=== PATIENT | female | born 1935 | race Caucasian/White ===

== ENCOUNTER 2016-09-25 06:40 | Day surgery (SDC) | payer MEDICARE, BC ==
[~2016-09-25] VITALS: Ht 153.7 cm; Wt 68.0 kg
[~2016-09-25 06:40] MED LIST: ALBU8.5H INH; AMLO2.5T PO; ASPI-557 PO; FEXO1TAB11 PO; FLUT1DIS3 ORAL INH; LEVO75TA10 PO; TRIA1TAB3 PO
--- OUTSIDE RECORDS SUMMARY | 2016-09-25 06:44 | XMS REPORT | Referral Summary ---
Author Author [facility] Organization [facility] Address Unknown Phone Unavailable Care Team Providers Care Husbandry Person Name Role Phone Shoshana Kong Primary Care Physician [phone] Encounter Date(s): 12/25/15 - 12/25/15 [facility] [address] [place] [id number]- Discharge Diagnosis: Cough Discharge Diagnosis: Systolic murmur Discharge Diagnosis: Leg cramps Discharge Diagnosis: Dyspnea on effort Discharge Diagnosis: LBBB (left bundle branch block) Discharge Disposition: 01-Home or Self Care Attending Physician: Chidi Kong MD Vital Signs Most recent to 1 oldest [Reference Range]: Temperature Tympanic 36.7 degC [36.6-38.1 degC] (12/25/15 1:56 PM) Peripheral Pulse 78 bpm Rate [60-100 bpm] (12/25/15 1:56 PM) Blood Pressure 120/70 mmHg [90-140/60-90 mmHg] (12/25/15 1:56 PM) SpO2 95 % (12/25/15 1:56 PM) Problem List Condition Effective Dates Status Health Status Informant Anemia(Confirmed) Active Arthralgia of the Active pelvic region and thigh (finding)(Confirmed) Benign essential Active hypertension (disorder)(Confirmed ) Dyspnea with Active exertion(Confirmed) Hypothyroidism Active (disorder)(Confirmed ) LBBB (left bundle Active branch block)(Confirmed) Bruit of right Active carotid artery(Confirmed) Systolic Active murmur(Confirmed) Allergies, Adverse Reactions, Alerts Substance Reaction Severity Status acetaminophen Active codeine Active HYDROcodone Active Medications aspirin 81 mg oral tablet 81 mg 1 tabs, Oral, Daily, 0 Refill(s) Start Date: 01/11/15 Status: Ordered levothyroxine 75 mcg (0.075 mg) oral tablet 75 mcg 1 tabs, Oral, Daily, # 90 tabs, 3 Refill(s), Pharmacy: [facility] [id number], 1 tabs Oral Daily Start Date: 07/24/15 Status: Ordered Norvasc 2.5 mg oral tablet See Instructions, TAKE 1 TABLET (2.5MG) BY ORAL ROUTE EVERY DAY, # 30 unknown unit, eRx: [id number], TAKE 1 TABLET (2.5MG) BY ORAL ROUTE EVERY DAY Start Date: 11/20/14 Status: Ordered triamterene-hydrochlorothiazide 37.5 mg-25 mg oral tablet See Instructions, TAKE 1 TABLET BY MOUTH ONCE EVERY DAY, # 90 tabs, eRx: [facility] [id number], TAKE 1 TABLET BY MOUTH ONCE EVERY DAY Start Date: 10/10/15 Status: Ordered Results Hematology Most recent to 1 oldest [Reference Range]: WBC [4.8-10.8 8.2 10*3/uL 10*3/uL] (12/25/15 3:18 PM) RBC [4.00-5.20] 4.88 (12/25/15 3:18 PM) Hgb [12.0-16.0 14.4 gm/dL gm/dL] (12/25/15 3:18 PM) Hct [37.0-47.0 %] 43.7 % (12/25/15 3:18 PM) MCV [82.0-99.0 fL] 89.5 fL (12/25/15 3:18 PM) MCH [27.0-32.0 pg] 29.5 pg (12/25/15 3:18 PM) MCHC [32.0-36.0 33.0 gm/dL gm/dL] (12/25/15 3:18 PM) RDW [11.5-14.5 %] 13.1 % (12/25/15 3:18 PM) Platelet [150-400 302 10*3/uL 10*3/uL] (12/25/15 3:18 PM) MPV [8.8-14.8 fL] 9.8 fL (12/25/15 3:18 PM) Immature 0.1 % Granulocytes (12/25/15 3:18 PM) [0.0-1.0 %] Neutrophils [51-75 72 % %] (12/25/15 3:18 PM) Lymphocytes [20-46 16 % %] *LOW* (12/25/15 3:18 PM) Monocytes [4-11 %] 10 % (12/25/15 3:18 PM) Eosinophils [0-4 %] 2 % (12/25/15 3:18 PM) Basophils [0-2 %] 1 % (12/25/15 3:18 PM) Neutro Absolute 5.87 10*3 [1.90-7.00 10*3] (12/25/15 3:18 PM) Lymph Absolute 1.31 10*3 [0.80-3.30 10*3] (12/25/15 3:18 PM) [place] Absolute 0.80 10*3 [0.30-1.00 10*3] (12/25/15 3:18 PM) Eos Absolute 0.15 10*3 [0.00-0.50 10*3] (12/25/15 3:18 PM) Baso Absolute 0.04 10*3 [0.00-0.20 10*3] (12/25/15 3:18 PM) Chemistry Most recent to 1 oldest [Reference Range]: Sodium Lvl [135-144 140 mEq/L mEq/L] (12/25/15 3:18 PM) Potassium Lvl 4.0 mEq/L [3.5-5.2 mEq/L] (12/25/15 3:18 PM) Chloride [99-111 101 mEq/L mEq/L] (12/25/15 3:18 PM) CO2 [22-31 mEq/L] 29 mEq/L (12/25/15 3:18 PM) AGAP [3-20] 10 (12/25/15 3:18 PM) BUN [10-20 mg/dL] 28 mg/dL *HI* (12/25/15 3:18 PM) Glucose Lvl [70-99 90 mg/dL mg/dL] (12/25/15 3:18 PM) Creatinine Lvl 1.51 mg/dL [0.57-1.11 mg/dL] *HI* (12/25/15 3:18 PM) eGFR [>60 mL/min] 33 mL/min 1 *ABN* (12/25/15 3:18 PM) Calcium Lvl 10.0 mg/dL [8.9-10.5 mg/dL] (12/25/15 3:18 PM) 1Result Comment: Multiply eGFR results by 1.21 for race. Immunizations No data available for this section Procedures Procedure Date Related Diagnosis Body Site Colonoscopy 04/08/04 Hysterectomy Knee replacement-Lt1 1Bilat TKR on same day about 2010. Social History Social History Type Response Smoking Status Former smoker; Type: Cigarettes; Tobacco use per day: Less than Pack; Number of years: 101 1quit 1993 Assessment and Plan Extracted from: Title: breathing issue Author: Chidi Kong MD Date: 12/25/15 Impression and Plan Diagnosis Systolic murmur ([id number] I38, Discharge, Medical). LBBB (left bundle branch block) (GGG31-JP I44.7, Discharge, Medical). Cough ([id number] R05, Discharge, Medical). Dyspnea on effort (FRY94-HK R06.09, Discharge, Medical). Leg cramps (XPD95-VZ R25.2, Discharge, Medical). Orders Orders (Selected) Outpatient Orders Ordered CBC w/ Differential: Metabolic Panel: eGFR: Completed Chest XR 2 Views: .
--- OUTSIDE RECORDS SUMMARY | 2016-09-25 06:44 | XMS REPORT | Continuity of Care Document ---
Author Author [facility] Organization [facility] Address Unknown Phone Unavailable Allergies Medications Problems Procedures Results Encounters ACCT No. Visit Date/Time Discharge Status Pt. Type Provider Facility Loc./Unit Complaint [id number] 09/02/2013 09:13:00 09/02/2013 23 :59:59 CLS Outpatient [id number] 06/17/2013 08:54:00 06/17/2013 23 :59:59 CLS Outpatient [id number] 06/09/2013 11:14:00 06/09/2013 23 :59:59 CLS Outpatient
--- OUTSIDE RECORDS SUMMARY | 2016-09-25 06:44 | XMS REPORT | Continuity of Care Document ---
Author Author Nickolas Palma MD [facility] Ambulatory Address [address] [place] [address] [place] [address] Phone Care Team Providers Care Nuclear Chemistry Technician Name Role Phone Nickolas Palma PP Unavailable Payers Payer name Insurance type Covered constitution party ID Authorization(s) Unknown Problems Condition Effective Dates (start - stop) Clinical Status Hypertension, Benign - *Chronic Cough - *Uncontrolled Gastroenteritis - *Acute Hip pain - *Chronic Hypertension, Benign - *Chronic Cough - *Chronic Hypertension, Benign - *Chronic Hypothyroidism - *Chronic Pain in joint involving pelvic region and thigh - *Acute HYPOTHYROIDISM NOS - ANEMIA NOS - BENIGN HYPERTENSION - ESOPHAGEAL REFLUX - Bronchitis, Acute - *Acute Bronchitis, Acute - *Acute Bronchitis, Acute - *Acute Family History Family Member Diagnosis Age At Onset Status Unknown Social History Social History Element Description Quantity Unknown Allergies, Adverse Reactions, Alerts Substance Reaction Severity Status CODEINE Unknown ACETAMINOPHEN Unknown HYDROCODONE BITARTRATE Unknown Medications Medication Instructions Dosage Effective Dates (start - stop) Status Maxzide-25mg 37.5 mg-25 mg tablet take 1 tablet by oral route every day 0 - No Longer Active Percocet 5 mg-325 mg tablet Take 1-2 tablet by mouth every 6 hours as needed. - Active Benadryl 25 mg capsule USES PRN FOR COUGH - Active Synthroid 100 mcg tablet Take 1 tablet by mouth every day. - Active Maxzide-25mg 37.5 mg-25 mg tablet take 1 tablet by oral route every day 0 - Active Norvasc 2.5 mg tablet take 1 tablet (2.5MG) by oral route every day 2.5 MG - Active Immunizations Vaccine Date Status Comments Unknown Results Test Name Date and Time Measure Units Reference Range Abnormal Flag Comments Unknown Vital Signs Date / Time: Height Weight Pulse Rate Blood Pressure Temperature /09:13:00 60.50 in 163.00 lbs 88 /min 142/80 mm[Hg] 97.6 F Procedures Procedure Date Unknown Encounters Encounter Location Date Patient Visit [facility] Patient Visit [facility] Patient Visit [facility] Patient Visit [facility] Patient Visit [facility] Patient Visit [facility] Patient Visit [facility] Patient Visit [facility] Patient Visit [facility] Patient Visit [facility] Advance Directives Directive Effective Date Unknown
--- OUTSIDE RECORDS SUMMARY | 2016-09-25 06:44 | XMS REPORT | Continuity of Care Document ---
Author Author Nickolas Palma MD [facility] Amb[facility] Address [address] [place] [address] [place] [address] Phone Care Team Providers Care Director Of Flight Operations Name Role Phone Nickolas Palma PP Unavailable Payers Payer name Insurance type Covered alliance party ID Authorization(s) Unknown Problems Condition Effective Dates (start - stop) Clinical Status Bronchitis, Acute - *Acute Gastroenteritis - *Acute Hip pain - *Chronic Bronchitis, Acute - *Acute Hypertension, Benign - *Chronic Hypothyroidism - *Chronic Pain in joint involving pelvic region and thigh - *Acute HYPOTHYROIDISM NOS - ANEMIA NOS - BENIGN HYPERTENSION - ESOPHAGEAL REFLUX - Bronchitis, Acute - *Acute Family History Family Member Diagnosis Age At Onset Status Unknown Social History Social History Element Description Quantity Unknown Allergies, Adverse Reactions, Alerts Substance Reaction Severity Status CODEINE Unknown ACETAMINOPHEN Unknown HYDROCODONE BITARTRATE Unknown Medications Medication Instructions Dosage Effective Dates (start - stop) Status Zithromax Z-Michael 250 mg tablet take 2 tablet (500MG) by oral route every day for 1 day then 1 tablet (250 mg) by oral route once daily for 4 days 500 MG - No Longer Active Percocet 5 mg-325 mg tablet Take 1-2 tablet by mouth every 6 hours as needed. - Active Benadryl 25 mg capsule USES PRN FOR COUGH - Active potassium chloride ER 10 mEq tablet,extended release take 1 Tablet (10MEQ) by oral route every day 10 MEQ - Active Synthroid 100 mcg tablet Take 1 tablet by mouth every day. - Active diltiazem ER 240 mg capsule,extended release Take 1 capsule by mouth every day. - Active hydrochlorothiazide 25 mg tablet Take 1 tablet by mouth every day. 2012 - Active prednisone 10 mg tablet Take 6 tabs on the first day and decrease by one tab daily until finished. - Active Immunizations Vaccine Date Status Comments Unknown Results Test Name Date and Time Measure Units Reference Range Abnormal Flag Comments Unknown Vital Signs Date / Time: Height Weight Pulse Rate Blood Pressure Temperature /11:14:00 60.50 in 151.00 lbs 91 /min 118/66 mm[Hg] 98.8 F Procedures Procedure Date Unknown Encounters Encounter Location Date Patient Visit [facility] Patient [facility] Patient Visit [facility] Patient Visit [facility] Patient Visit [facility] Patient Visit [facility] Patient Visit [facility] Patient Visit [facility] Patient Visit [facility] Patient Visit [facility] Advance Directives Directive Effective Date Unknown
--- OUTSIDE RECORDS SUMMARY | 2016-09-25 06:44 | XMS REPORT | Referral Summary ---
Author Author [facility] Organization [facility] Address Unknown Phone Unavailable Care Team Providers Care Reclamation Engineer Name Role Phone Shoshana Kong Primary Care Physician [phone] Encounter Date(s): 07/23/15 - 07/23/15 [facility] [address] [place] [id number] Discharge Diagnosis: Benign essential hypertension Discharge Diagnosis: Anemia Discharge Diagnosis: Dyspnea on effort Discharge Diagnosis: Fatigue Discharge Diagnosis: CKD (chronic kidney disease), stage III Discharge Diagnosis: Hypothyroidism Discharge Disposition: 01-Home or Self Care Attending Physician: Chidi Kong MD Admitting Physician: Chidi Kong MD Vital Signs Most recent to 1 oldest [Reference Range]: Temperature Tympanic 36.7 degC [36.6-38.1 degC] (07/23/15 8:18 AM) Peripheral Pulse 78 bpm Rate [60-100 bpm] (07/23/15 8:18 AM) Blood Pressure 127/70 mmHg [90-140/60-90 mmHg] (07/23/15 8:18 AM) Problem List Condition Effective Dates Status Health [...] levothyroxine 75 mcg (0.075 mg) oral tablet See Instructions, 1 TABS ORAL DAILY,INSTR:REPEAT LABS IN 6 WEEKS, # 30 tabs, 0 Refill(s), [id number], 1 TABS ORAL DAILY,INSTR:REPEAT LABS IN 6 WEEKS Start Date: 06/28/15 Status: Ordered Maxzide-25 oral tablet See Instructions, TAKE 1 TABLET BY ORAL ROUTE EVERY DAY, # 90 unknown unit, eRx : [facility] [id number], TAKE 1 TABLET BY ORAL ROUTE EVERY DAY Start Date: 07/11/15 Status: Ordered Norvasc 2.5 mg oral tablet See Instructions, TAKE 1 TABLET (2.5MG) BY ORAL ROUTE EVERY DAY, # 30 unknown unit, eRx: [facility] [id number], TAKE 1 TABLET (2.5MG) BY ORAL ROUTE EVERY DAY Start Date: 11/20/14 Status: Ordered Results Hematology Most recent to 1 oldest [Reference Range]: WBC [4.8-10.8 5.9 10*3/uL 10*3/uL] (07/23/15 8:23 AM) RBC [4.00-5.20] 5.03 (07/23/15 8:23 AM) Hgb [12.0-16.0 14.4 gm/dL gm/dL] (07/23/15 8:23 AM) Hct [37.0-47.0 %] 45.2 % (07/23/15 8:23 AM) MCV [82.0-99.0 fL] 89.9 fL (07/23/15 8:23 AM) MCH [27.0-32.0 pg] 28.6 pg (07/23/15 8:23 AM) MCHC [32.0-36.0 31.9 gm/dL gm/dL] *LOW* (07/23/15 8:23 AM) RDW [11.5-14.5 %] 13.7 % (07/23/15 8:23 AM) Platelet [150-400 290 10*3/uL 10*3/uL] (07/23/15 8:23 AM) MPV [8.8-14.8 fL] 9.7 fL (07/23/15 8:23 AM) Immature 0.2 % Granulocytes (07/23/15 8:23 AM) [0.0-1.0 %] Neutrophils [51-75 67 % %] (07/23/1523 AM) Lymphocytes [20-46 20 % %] (07/23/15 AM) Monocytes [4-11 %] 10 % (07/23/15 AM) Eosinophils [0-4 %] 3 % (07/23/15 AM) Basophils [0-2 %] 1 % (07/23/15 AM) Neutro Absolute 3.99 10*3 [1.90-7.00 10*3] (07/23/1523 AM) Lymph Absolute 1.16 10*3 [0.80-3.30 10*3] (07/23/1523 AM) [place] Absolute 0.58 10*3 [0.30-1.00 10*3] (07/23/1523 AM) Eos Absolute 0.16 10*3 [0.00-0.50 10*3] (07/23/15 AM) Baso Absolute 0.03 10*3 [0.00-0.20 10*3] (07/23/1523 AM) Chemistry Most recent to 1 oldest [Reference Range]: Sodium Lvl [135-144 141 mEq/L mEq/L] (07/23/15 AM) Potassium Lvl 3.9 mEq/L [3.5-5.2 mEq/L] (07/23/15 AM) Chloride [99-111 102 mEq/L mEq/L] (07/23/15 AM) CO2 [22-31 mEq/L] 31 mEq/L (07/23/1523 AM) AGAP [3-20] 8 (07/23/15 823 AM) BUN [10-20 mg/dL] 25 mg/dL *HI* (07/23/15 8:23 AM) Glucose Lvl [70-99 85 mg/dL mg/dL] (07/23/15 AM) Creatinine Lvl 1.23 mg/dL [0.57-1.11 mg/dL] *HI* (07/23/15 823 AM) eGFR [>60 mL/min] 42 mL/min 1 *ABN* (2/15/16 8:23 AM) Calcium Lvl 9.6 mg/dL [8.9-10.5 mg/dL] (07/23/15 8:23 AM) TSH with Reflex Free 0.73 T4 [0.35-4.94] (07/23/15 8:23 AM) 1Result Comment: Multiply eGFR results by 1.21 [...] 1993 Assessment and Plan Extracted from: Title: Get established Author: Chidi Kong MD Date: 07/23/15 Assessment/Plan Anemia Ordered: CBC w/ Differential Benign essential hypertension CKD (chronic kidney disease), stage III Ordered: Basic Metabolic Panel Dyspnea on effort Fatigue Ordered: CBC w/ Differential Hypothyroidism Ordered: TSH with Reflex Free T4 Due to fatigue and as monitoring of chronic kidney disease and hypothyroidism and history of anemia, we will check some labs today. These will include CBC, BMP, TSH. If her TSH is okay, plan to refill her thyroid medicine for one year with 90 days at a time, to be sent to [facility] pharmacy. As we concluded the visit, I had not had time to review her past history regarding pulmonology workup. I have done that since then and that is incorporated above. I think she should have some additional evaluation including pulmonary function tests. Certainly she seems to be responding symptomatically to Advair and would be ideal to continue on it. Cost of the medicine is that concern to her. Otherwise things seem to be stable and we will continue current medications. Follow-up 6 months or sooner if needed.
--- OUTSIDE RECORDS SUMMARY | 2016-09-25 06:44 | XMS REPORT | Continuity of Care Document ---
Author Author Nickolas Palma MD [facility] Ambulatory Address [address] [place] [address] [place] [address] Phone Care Team Providers Care Crop Grain Or Livestock Farmer Name Role Phone Nickolas Palma PP Unavailable Payers Payer name Insurance type Covered constitution party ID Authorization(s) Unknown Problems Condition Effective Dates (start - stop) Clinical Status Bronchitis, Acute - *Acute Gastroenteritis - *Acute Hip pain - *Chronic Hypertension, Benign - *Chronic Hypothyroidism - *Chronic Pain in joint involving pelvic region and thigh - *Acute Bronchitis, Acute - *Acute Bronchitis, Acute - *Acute ESOPHAGEAL REFLUX - BENIGN HYPERTENSION - ANEMIA NOS - HYPOTHYROIDISM NOS - Family History Family Member Diagnosis Age At Onset Status Unknown Social History Social History Element Description Quantity Unknown Allergies, Adverse Reactions, Alerts Substance Reaction Severity Status CODEINE Unknown ACETAMINOPHEN Unknown HYDROCODONE BITARTRATE Unknown Medications Medication Instructions Dosage Effective Dates (start - stop) Status prednisone 10 mg tablet Take 6 tabs on the first day and decrease by one tab daily until finished. - Active Percocet 5 mg-325 mg tablet Take 1-2 tablet by mouth every 6 hours as needed. - Active Benadryl 25 mg capsule USES PRN FOR COUGH - Active potassium chloride ER 10 mEq tablet,extended release take 1 Tablet (10MEQ) by oral route every day 10 MEQ - Active hydrochlorothiazide 25 mg tablet Take 1 tablet by mouth every day. 2012 - Active Synthroid 100 mcg tablet Take 1 tablet by mouth every day. - Active diltiazem 120 mg tablet take 1 tablet (120MG) by oral route 2 times every day 120 MG - Active Immunizations Vaccine Date Status Comments Unknown Results Test Name Date and Time Measure Units Reference Range Abnormal Flag Comments Unknown Vital Signs Date / Time: Height Weight Pulse Rate Blood Pressure Temperature /08:56:00 60.50 in 154.00 lbs 82 /min 124/80 mm[Hg] 97.6 F Procedures Procedure Date Unknown Encounters Encounter Location Date Patient Visit [facility] Patient Visit [facility] Patient Visit [facility] Patient Visit [facility] Patient Visit [facility] Patient Visit [facility] Patient Visit [facility] Patient Visit [facility] Patient Visit [facility] Patient Visit [facility] Patient Visit [facility] Advance Directives Directive Effective Date Unknown
--- OUTSIDE RECORDS SUMMARY | 2016-09-25 06:44 | XMS REPORT | Referral Summary ---
Author Author [facility] Organization [facility] Address Unknown Phone Unavailable Care Team Providers Care Chargeback Specialist Name Role Phone Shoshana Kong Primary Care Physician [phone] Encounter VC Date(s): 04/22/16 - 04/22/16 [facility] [address] [place] [id number] Discharge Disposition: 01-Home or Self Care Attending Physician: Chidi Kong MD Admitting Physician: Chidi Kong MD Vital Signs No data available for this section Problem List Condition Effective Dates Status Health Status Informant Anemia(Confirmed) Active Arthralgia of the Active pelvic region and thigh (finding)(Confirmed) Benign essential Active hypertension (disorder)(Confirmed ) CKD (chronic kidney Active disease), stage III(Confirmed) Dyspnea with Active exertion(Confirmed) Hypothyroidism Active (disorder)(Confirmed ) LBBB (left bundle Active branch block)(Confirmed) Mild persistent Active asthma(Confirmed) Bruit of right Active carotid artery(Confirmed) Systolic Active murmur(Confirmed) Allergies, Adverse Reactions, Alerts Substance Reaction Severity Status acetaminophen Active codeine Active HYDROcodone Active Medications Advair Diskus 250 mcg-50 mcg inhalation powder See Instructions, INHALE 1 DOSE INTO LUNGS TWICE DAILY, # 60 g, 1 Refill(s), eRx : [facility] [id number], INHALE 1 DOSE INTO LUNGS TWICE DAILY Start Date: 03/28/16 Status: Ordered albuterol CFC free 90 mcg/inh inhalation aerosol 2 puffs, Inhalation, q4hr, as needed for wheezing, # 8.5 g, 0 Refill(s), Pharmacy: [facility] [id number] Start Date: 12/28/15 Status: Ordered aspirin 81 mg oral tablet 81 mg 1 tabs, Oral, Daily, 0 Refill(s) Start Date: 8/6/15 Status: Ordered levothyroxine 75 mcg (0.075 mg) oral tablet 75 mcg 1 tabs, Oral, Daily, # 90 tabs, 3 Refill(s), Pharmacy: [facility] [id number], 1 tabs Oral Daily Start Date: 07/24/15 Status: Ordered Norvasc 2.5 mg oral tablet See Instructions, TAKE 1 TABLET (2.5MG) BY ORAL ROUTE EVERY DAY, # 90 Each, 1 Refill(s), Pharmacy: [facility][note 2], TAKE 1 TABLET (2.5MG) BY ORAL ROUTE EVERY DAY Start Date: 02/08/16 Status: Ordered Spacer Spacer, See Instructions, Spacer for use with Metered dose inhaler, # 1 Each, 0 Refill(s), Pharmacy: [facility][note 2], Spacer for use with Metered dose inhaler Start Date: 12/28/15 Status: Ordered triamterene-hydrochlorothiazide 37.5 mg-25 mg oral tablet See Instructions, TAKE 1 TABLET BY MOUTH ONCE EVERY DAY, # 90 tabs, 1 Refill(s) , eRx: [facility][note 2], TAKE 1 TABLET BY MOUTH ONCE EVERY DAY Start Date: 04/07/16 Status: Ordered Results No data available for this section Immunizations Vaccine Date Refusal Reason influenza virus vaccine, inactivated 04/22/16 pneumococcal 13-valent conjugate vaccine 01/25/16 Procedures Procedure Date Related Diagnosis Body Site Colonoscopy 04/08/04 Hysterectomy Knee replacement-Lt1 1Bilat TKR on same day about 2010. Social History Social History Type Response Smoking Status Former smoker; Type: Cigarettes; Tobacco use per day: Less than Pack; Number of years: 101 1quit 1993 Assessment and Plan No data available for this section
--- OUTSIDE RECORDS SUMMARY | 2016-09-25 06:44 | XMS REPORT | Referral Summary ---
Author Author [facility] Organization [facility] Address Unknown Phone Unavailable Care Team Providers Care Knocker Off Name Role Phone Shoshana Kong Primary Care Physician [phone] Encounter [facility] [id number] Date(s): 01/11/15 - 01/11/15 [facility] [address] [place], [place] [address] Discharge Diagnosis: Dizzy spells Discharge Diagnosis: Mild aortic stenosis Discharge Diagnosis: Essential hypertension Discharge Diagnosis: LBBB (left bundle branch block) Discharge Disposition: 01-Home or Self Care Attending Physician: Dustin Andre MD Admitting Physician: Dustin Andre MD Vital Signs Most recent to 1 oldest [Reference Range]: Peripheral Pulse 76 bpm Rate [60-100 bpm] (01/11/15 3:51 PM) Blood Pressure 112/72 mmHg [90-140/60-90 mmHg] (01/11/15 3:51 PM) Problem List Condition Effective Dates Status [...] Daily, # 90 tabs, 3 Refill(s), Pharmacy: [facility] [id number], 1 tabs Oral Daily Start Date: 07/24/15 Status: Ordered Maxzide-25 oral tablet See Instructions, TAKE 1 TABLET BY ORAL ROUTE EVERY DAY, # 90 unknown unit, eRx : [facility] [id number], TAKE 1 TABLET BY ORAL ROUTE EVERY DAY Start Date: 07/11/15 Status: Ordered Norvasc 2.5 mg oral tablet See Instructions, TAKE 1 TABLET (2.5MG) BY ORAL ROUTE EVERY DAY, # 30 unknown unit, eRx: [facility] [id number], TAKE 1 TABLET (2.5MG) BY ORAL ROUTE EVERY DAY Start Date: 11/20/14 Status: Ordered Results No data available for this section Immunizations No data available for this section Procedures Procedure Date Related Diagnosis Body Site Colonoscopy 04/08/04 Hysterectomy Knee replacement-Lt1 1Bilat TKR on same day about 2010. Social History Social History Type Response Smoking Status Former smoker; Type: Cigarettes; Tobacco use per day: Less than Pack; Number of years: 101 1quit 1993 Assessment and Plan Referrals to Other Providers Referred by: Dustin Andre MD
--- OUTSIDE RECORDS SUMMARY | 2016-09-25 06:44 | XMS REPORT | Referral Summary ---
Author Author [facility] Organization [facility] Address Unknown Phone Unavailable Care Team Providers Care Land Classifier Name Role Phone Ulisses Palma Primary Care Physician [phone] Encounter VC Date(s): 03/26/15 - 03/26/15 [facility] [address] [place] [id number] Discharge Diagnosis: Benign essential hypertension Discharge Diagnosis: Hypothyroidism Discharge Diagnosis: Cough Discharge Disposition: 01-Home or Self Care Attending Physician: Nickolas Palma MD Admitting Physician: Nickolas Palma MD Vital Signs Most recent to 1 oldest [Reference Range]: Temperature Tympanic 36.4 degC [36.6-38.1 degC] *LOW* (03/26/15 8:29 AM) Peripheral Pulse 80 bpm Rate [60-100 bpm] (03/26/15 8:29 AM) Respiratory Rate 24 br/min [14-20 br/min] *HI* (03/26/15 8:29 AM) Blood Pressure 126/76 mmHg [90-140/60-90 mmHg] (03/26/15 8:29 AM) Problem List Condition Effective Dates Status [...] 0 Refill(s) Start Date: 01/11/15 Status: Ordered Benadryl 25 mg oral capsule caps, Oral, TID, uses PRN for cough, 0 Refill(s) Start Date: 09/15/14 Status: Ordered levothyroxine 88 mcg (0.088 mg) oral tablet 88 mcg 1 tabs, Oral, Daily, Recheck lab TSH in 6 weeks, # 90 tabs, 0 Refill(s), Pharmacy: [facility] [id number], 1 tabs Oral Daily,Instr:Recheck lab TSH in 6 weeks Start Date: 01/12/15 Status: Ordered Maxzide-25 oral tablet See Instructions, TAKE 1 TABLET BY ORAL ROUTE EVERY DAY, # 90 unknown unit, eRx : [facility] [id number], TAKE 1 TABLET BY ORAL ROUTE EVERY DAY Start Date: 01/08/15 Status: Ordered Norvasc 2.5 mg oral tablet See Instructions, TAKE 1 TABLET (2.5MG) BY ORAL ROUTE EVERY DAY, # 30 unknown unit, eRx: [facility] [id number], TAKE 1 TABLET (2.5MG) BY ORAL ROUTE EVERY DAY Start Date: 11/20/14 Status: Ordered omeprazole 20 mg, Oral, Daily, 0 Refill(s) Start Date: 03/26/15 Status: Ordered Percocet 5/325 oral tablet See Instructions, take 1 - 2 tablet by mouth every 6 hours as needed, 0 Refill(s ) Start Date: 09/15/14 Status: Ordered Results Chemistry Most recent to 1 oldest [Reference Range]: T4 Free [0.7-1.5 1.6 ng/dL ng/dL] *HI* (03/26/15 9:38 AM) TSH with Reflex Free 0.08 T4 [0.35-4.94] *LOW* (03/26/15 9:38 AM) Immunizations No data available for this section Procedures Procedure Date Related Diagnosis Body Site Colonoscopy 04/08/04 Hysterectomy Knee replacement-Lt Social History Social History Type Response Smoking Status Former smoker; Type: Cigarettes; Tobacco use per day: Less than Pack; Number of years: 101 1quit 1993 Assessment and Plan Extracted from: Title: Office Visit Note Author: Nickolas Palma MD Date: 03/26/15 Assessment/Plan Benign essential hypertension Cough Hypothyroidism Plan: Regarding your blood pressure and thyroid I think they are stable. I am checking a TSH today. I would like to do a bone density test. I gave you a sample of Advair 250/50 to use 1 inhalation twice a day. If you're cough is not better in a week to 2 weeks let me know. I also want to start loratadine 10 mg a day. We discussed the need to find a new primary care physician. He need a med check up in 6 months. Ordered: TSH with Reflex Free T4 Orders: BD Bone Density DEXA Axial Skeleton
--- OUTSIDE RECORDS SUMMARY | 2016-09-25 06:44 | XMS REPORT | Referral Summary ---
Author Author [facility] Organization [facility] Address Unknown Phone Unavailable Care Team Providers Care Slipcover Cutter Name Role Phone Shoshana Kong Primary Care Physician [phone] Encounter Date(s): 01/11/15 - 01/11/15 [facility] [address] [place], [place] [address] Discharge Disposition: 01-Home or Self Care Attending Physician: Dustin Andre MD Admitting Physician: Dustin Andre MD Vital Signs No data available for [...] Daily, # 90 tabs, 3 Refill(s), Pharmacy: [facility] [id number], 1 tabs Oral Daily Start Date: 07/24/15 Status: Ordered Maxzide-25 oral tablet See Instructions, TAKE 1 TABLET BY ORAL ROUTE EVERY DAY, # 90 unknown unit, eRx : [facility] [id number], TAKE 1 TABLET BY ORAL ROUTE EVERY DAY Start Date: 07/11/15 Status: Ordered Norvasc 2.5 mg oral tablet See Instructions, TAKE 1 TABLET (2.5MG) BY ORAL ROUTE EVERY DAY, # 30 unknown unit, eRx: [facility] [id number], TAKE 1 TABLET (2.5MG) BY ORAL ROUTE [...]
--- OUTSIDE RECORDS SUMMARY | 2016-09-25 06:44 | XMS REPORT | Referral Summary ---
Author Author [facility] Organization [facility] Address Unknown Phone Unavailable Care Team Providers Care Conflict Resolution Professional Name Role Phone Shoshana Kong Primary Care Physician [phone] Encounter Date(s): 01/25/16 - 01/25/16 [facility] [address] [place] [address] Discharge Diagnosis: Mild persistent asthma Discharge Diagnosis: Hypothyroidism Discharge Diagnosis: Benign essential hypertension Discharge Diagnosis: Colon cancer screening Discharge Diagnosis: CKD (chronic kidney disease), stage III Discharge Disposition: 01-Home or Self Care Attending Physician: Chidi Kong MD Admitting Physician: Chidi Kong MD Vital Signs Most recent to 1 oldest [Reference Range]: Temperature Tympanic 36.7 degC [36.6-38.1 degC] (01/25/16 8:08 AM) Peripheral Pulse 80 bpm Rate [60-100 bpm] (01/25/16 8:08 AM) Blood Pressure 117/69 mmHg [90-140/60-90 mmHg] (01/25/16 8:08 AM) Problem List Condition Effective Dates Status [...] Advair Diskus 250 mcg-50 mcg inhalation powder 1 puffs, Inhalation, BID, # 60 Each, 1 Refill(s), Pharmacy: [facility] [id number] Start Date: 01/11/16 Status: Ordered albuterol CFC free 90 mcg/inh inhalation aerosol 2 puffs, Inhalation, q4hr, as needed for wheezing, # 8.5 g, 0 Refill(s), Pharmacy: [facility] [address] Start Date: 12/28/15 Status: Ordered aspirin 81 mg oral tablet 81 mg 1 tabs, Oral, Daily, 0 Refill(s) Start Date: 01/11/15 Status: Ordered levothyroxine 75 mcg (0.075 mg) oral tablet 75 mcg 1 tabs, Oral, Daily, # 90 tabs, 3 Refill(s), Pharmacy: [facility] [id number], 1 tabs Oral Daily Start Date: 07/24/15 Status: Ordered Norvasc 2.5 mg oral tablet See Instructions, TAKE 1 TABLET (2.5MG) BY ORAL ROUTE EVERY DAY, # 30 unknown unit, eRx: [facility] [id number], TAKE 1 TABLET (2.5MG) BY ORAL ROUTE EVERY DAY Start Date: 11/20/14 Status: Ordered Spacer Spacer, See Instructions, Spacer for use with Metered dose inhaler, # 1 Each, 0 Refill(s), Pharmacy: [facility] [id number], Spacer for use with Metered dose inhaler Start Date: 12/28/15 Status: Ordered triamterene-hydrochlorothiazide 37.5 mg-25 mg oral tablet See Instructions, TAKE 1 TABLET BY MOUTH ONCE EVERY DAY, # 90 tabs, eRx: [facility] [id number], TAKE 1 TABLET BY MOUTH ONCE EVERY DAY Start Date: 01/07/16 Status: Ordered Results No data available for this section Immunizations Vaccine Date Refusal Reason pneumococcal 13-valent conjugate vaccine 01/25/16 Procedures Procedure Date Related Diagnosis Body Site Colonoscopy 04/08/04 Hysterectomy Knee replacement-Lt1 1Bilat TKR on same day about 2010. Social History Social History Type Response Smoking Status Former smoker; Type: Cigarettes; Tobacco use per day: Less than Pack; Number of years: 101 1quit 1993 Assessment and Plan Extracted from: Title: [facility] Author: Chidi Kong MD Date: 01/25/16 Impression and Plan Diagnosis Mild persistent asthma (JCA26-XB J45.30, Discharge, Medical). Hypothyroidism (YCX86-YE E03.9, Discharge, Medical). Benign essential hypertension (YHB15-BN I10, Discharge, Medical). Colon cancer screening (DUN21-VL Z12.11, Discharge, Medical). CKD (chronic kidney disease), stage III (OJD34-IQ N18.3, Discharge, Medical). Orders Orders (Selected) Outpatient Orders Future (On Hold) BMP: Occult Blood X 3, Stool: .
--- OUTSIDE RECORDS SUMMARY | 2016-09-25 06:44 | XMS REPORT | Referral Summary ---
Author Author [facility] Organization [facility] Address Unknown Phone Unavailable Care Team Providers Care Shoe Parts Molder Name Role Phone Shoshana Kong Primary Care Physician [phone] Encounter VC Date(s): 01/11/16 - 01/11/16 [facility] [address] [place] [address] Discharge Diagnosis: Mild persistent asthma Discharge Diagnosis: Pain in both feet Discharge Disposition: 01-Home or Self Care Attending Physician: Chidi Kong MD Admitting Physician: Chidi Kong MD Vital Signs Most recent to 1 oldest [Reference Range]: Temperature Tympanic 37.0 degC [36.6-38.1 degC] (01/11/16 12:49 PM) Peripheral Pulse 83 bpm Rate [60-100 bpm] (01/11/16 12:49 PM) Blood Pressure 112/64 mmHg [90-140/60-90 mmHg] (01/11/16 12:49 PM) SpO2 97 % (01/11/16 12:49 PM) Problem List Condition Effective Dates Status [...] BID, # 60 Each, 1 Refill(s), Pharmacy: [facility] [id number] Start Date: 01/11/16 Status: Ordered albuterol CFC free 90 mcg/inh inhalation aerosol 2 puffs, Inhalation, q4hr, as needed for wheezing, # 8.5 g, 0 Refill(s), Pharmacy: [facility] [id number] Start Date: 12/28/15 Status: Ordered aspirin 81 mg oral tablet 81 mg 1 tabs, Oral, Daily, 0 Refill(s) Start Date: 01/11/15 Status: Ordered levothyroxine 75 mcg (0.075 mg) oral tablet 75 mcg 1 tabs, Oral, Daily, # 90 tabs, 3 Refill(s), Pharmacy: [facility], 1 tabs Oral Daily Start Date: 07/24/15 Status: Ordered Norvasc 2.5 mg oral tablet See Instructions, TAKE 1 TABLET (2.5MG) BY ORAL ROUTE EVERY DAY, # 30 unknown unit, eRx: [facility] [id number], TAKE 1 TABLET (2.5MG) BY ORAL ROUTE EVERY DAY Start Date: 11/20/14 Status: Ordered Spacer Spacer, See Instructions, Spacer for use with Metered dose inhaler, # 1 Each, 0 Refill(s), Pharmacy: [facility], Spacer for use with Metered dose inhaler Start Date: 12/28/15 Status: Ordered triamterene-hydrochlorothiazide 37.5 mg-25 mg oral tablet See Instructions, TAKE 1 TABLET BY MOUTH ONCE EVERY DAY, # 90 tabs, eRx: [facility] [id number], TAKE 1 TABLET BY MOUTH ONCE EVERY [...] 1992 Assessment and Plan Extracted from: Title: Follow Up Author: Chidi Kong MD Date: 01/11/16 Impression and Plan Diagnosis Mild persistent asthma (AZG40-JL J45.30, Discharge, Medical). Pain in both feet (CFT15-GZ M79.671, Discharge, Medical). Orders Orders (Selected) Prescriptions Prescribed Advair Diskus 250 mcg-50 mcg inhalation powder: 1 puffs, Inhalation, BID, 60 Each, 1 Refill(s).
--- OUTSIDE RECORDS SUMMARY | 2016-09-25 06:44 | XMS REPORT | Referral Summary ---
Author Author [facility] Organization [facility] Address Unknown Phone Unavailable Care Team Providers Care Retail Consultant Name Role Phone Shoshana Kong Primary Care Physician [phone] Encounter VC Date(s): 01/11/15 - 01/11/15 [facility] [address] [place] [address] Discharge Disposition: 01-Home or Self Care Attending Physician: Nickolas Palma MD Admitting Physician: Nickolas Palma MD Vital Signs Most recent to 1 oldest [Reference Range]: Temperature Tympanic 36.4 degC [36.6-38.1 degC] *LOW* (01/11/15 9:23 AM) Peripheral Pulse 76 bpm Rate [60-100 bpm] (01/11/15 9:23 AM) Respiratory Rate 24 br/min [14-20 br/min] *HI* (01/11/15 9:23 AM) Blood Pressure 136/74 mmHg [90-140/60-90 mmHg] (01/11/15 9:23 AM) Problem List Condition Effective Dates Status [...] WEEKS, # 30 tabs, 0 Refill(s), Pharmacy: [facility] [id number], 1 TABS ORAL DAILY,INSTR:REPEAT LABS IN 6 WEEKS Start Date: 06/28/15 Status: Ordered Maxzide-25 oral tablet See Instructions, TAKE 1 TABLET BY ORAL ROUTE EVERY DAY, # 90 unknown unit, eRx : [facility] [id number], TAKE 1 TABLET BY ORAL ROUTE EVERY DAY Start Date: 07/11/15 Status: Ordered Norvasc 2.5 mg oral tablet See Instructions, TAKE 1 TABLET (2.5MG) BY ORAL ROUTE EVERY DAY, # 30 unknown unit, eRx: [facility] [id number], TAKE 1 TABLET (2.5MG) BY ORAL ROUTE [...] Visit Note Author: Nickolas Palma MD Date: 01/11/15 Assessment/Plan Bruit of right carotid artery Ordered: Request for Cardiovascular Echo Dizziness of unknown cause Ordered: CBC w/ Differential TSH with Reflex Free T4 Systolic murmur Plan: I have called and discussed your findings and symptoms to Dr. Andre. He has agreed to work you into his schedule. I would like to do a Holter monitor but our ability to order them this week is compromised. Possibly Dr. Andre could order that. I have ordered an echo and a carotid sonogram. Your EKG here today showed left bundle branch block but no concerning findings from my standpoint. I have ordered some lab tests a CBC, CMP and a TSH. If from a cardiology standpoint there is no concerns about her dizziness then follow-up with me for reevaluation. Ordered: Comprehensive Metabolic Panel Echo,2D W/Doppl [id number] EKG with Interpretation [id number] Request for Cardiovascular Echo
--- OUTSIDE RECORDS SUMMARY | 2016-09-25 06:45 | XMS REPORT | Referral Summary ---
Author Author [facility] Organization [facility] Address Unknown Phone Unavailable Care Team Providers Care Elementary School Music Teacher Name Role Phone Shoshana Kong Primary Care Physician [phone] Encounter Date(s): 01/17/15 - 01/17/15 [facility] [address] [place] [address] [place] [address] Discharge Diagnosis: LBBB (left bundle branch block) Discharge Diagnosis: Edema Discharge Diagnosis: Secondary hyperthyroidism Discharge Diagnosis: Dizziness Discharge Disposition: -Home or Self Care Attending Physician: Dustin Andre MD Admitting Physician: Dustin Andre MD Referring Physician: Nickolas Palma MD Vital Signs Most recent to 1 oldest [Reference Range]: Peripheral Pulse 80 bpm Rate [60-100 bpm] (01/17/15 2:40 PM) Blood Pressure 146/84 mmHg [90-140/60-90 mmHg] *HI* (01/17/15 2:40 PM) Problem List Condition Effective Dates Status [...] Daily, # 90 tabs, 3 Refill(s), Pharmacy: [facility] [address], 1 tabs Oral Daily Start Date: 07/24/15 Status: Ordered Maxzide-25 oral tablet See Instructions, TAKE 1 TABLET BY ORAL ROUTE EVERY DAY, # 90 unknown unit, eRx : [facility] [id number], TAKE 1 TABLET BY ORAL ROUTE EVERY DAY Start Date: 07/11/15 Status: Ordered Norvasc 2.5 mg oral tablet See Instructions, TAKE 1 TABLET (2.5MG) BY ORAL ROUTE EVERY DAY, # 30 unknown unit, eRx: [facility] [address], TAKE 1 TABLET (2.5MG) BY ORAL ROUTE [...] Extracted from: Title: Office Visit Note Author: Dustin Andre MD Date: 01/17/15 Assessment/Plan 1.Dizziness 2.Secondary hyperthyroidism 3.LBBB (left bundle branch block) 4.Edema Discussion I suspect that the thyroid may be the abbott aspect of her symptom complex and for that reason, I elected not to make any changes in her medication program at this point. I advised her to have a follow-up visit in 6 -12 months but to call any time if she feels that her symptoms are worsening.
--- OUTSIDE RECORDS SUMMARY | 2016-09-25 06:45 | XMS REPORT | Referral Summary ---
Author Author [facility] Organization [facility] Address Unknown Phone Unavailable Care Team Providers Care Stoneworking Belt Sander Name Role Phone Shoshana Kong Primary Care Physician [phone] Encounter Date(s): 03/26/15 - 03/26/15 [facility] [address] [place] [address] Discharge Diagnosis: Benign essential hypertension [...] Daily, # 90 tabs, 3 Refill(s), Pharmacy: [facility] [address], 1 tabs Oral Daily Start Date: 07/24/15 Status: Ordered Maxzide-25 oral tablet See Instructions, TAKE 1 TABLET BY ORAL ROUTE EVERY DAY, # 90 unknown unit, eRx : [facility] [id number], TAKE 1 TABLET BY ORAL ROUTE EVERY DAY Start Date: 07/11/15 Status: Ordered Norvasc 2.5 mg oral tablet See Instructions, TAKE 1 TABLET (2.5MG) BY ORAL ROUTE EVERY DAY, # 30 unknown unit, eRx: [facility] [id number], TAKE 1 TABLET (2.5MG) BY ORAL ROUTE EVERY DAY Start Date: 11/20/14 Status: Ordered Results Chemistry Most recent to [...]
[2016-09-25] MEDS ORDERED: LR 1,000 ML IV SCH (07:00)
[2016-09-25] MEDS ORDERED: LIDOCAINE 1% (10mg/ml) 2ml SDV INJ ONE (07:00)
[2016-09-25 07:01] VITALS: BP 149/78; PULSE 71; RESP 22; TEMP 98; O2SAT 93
[2016-09-25 07:02] VITALS: Ht 153.7 cm; Wt 68.0 kg
[2016-09-25] MEDS ORDERED: LIDOCAINE 2% (20mg/ml) 5ml PF SDV ONE (08:32)
[2016-09-25] MEDS ORDERED: PROPOFOL 500mg 50 ML IV ONE (08:32)
--- NOTE | 2016-09-25 08:44 | ANESPREOP ---
Anesthesia Record Date and Time DATE: 09/25/16 TIME: 0730 Pre-Op Diagnosis screening Proposed Surgical Procedure COLONOSCOPY NPO since: mn Allergies: Coded Allergies: acetaminophen (Unverified Allergy, Unknown, 09/25/16) codeine (Unverified Allergy, Unknown, 09/25/16) hydrocodone (Unverified Allergy, Unknown, 09/25/16) Ht/Wt/BMI Height: 5 ' 0.50 " Weight: 68.000 kg BMI: 28.8 kg/m2 Vital Signs Date Time Temp Pulse Resp B/P Pulse Ox O2 Delivery O2 Flow Rate FiO2 09/25/16 07:01 98.0 71 22 149/78 93 Room Air Medications Inpatient Medications Current Medications Medications (Trade) Dose Ordered Sig/Esvin Start Time Stop Time Status Last Admin Dose Admin Lactated Ringer's (Lactated Ringers) 1,000 ml @ 50 mls/hr Q20H 09/25/16 07:00 09/25/16 07:18 50 MLS/HR Albuterol Sulfate (Proair HFA 90 mcg/actuation) 8.5 Gm Hfa.aer.ad, 2 PUFF INH Q6H PRN for SHORTNESS OF AIR/WHEEZING, (Reported) Last Taken: on 09/18/16 Amlodipine Besylate (Amlodipine Besylate) 2.5 Mg Tablet, 1 TAB PO DAILY, (Reported) Last Taken: on 09/25/16 0600 Aspirin (Aspir 81) 81 Mg Tablet.dr, 1 TAB PO DAILY, (Reported) Last Taken: on 09/19/16 Fexofenadine/Pseudoephedrine (Genet-D 24 Hour Tablet) 1 Each Tab.er.24h, 1 TAB PO DAILY, (Reported) Last Taken: on 09/24/16 0800 Fluticasone/Salmeterol (Advair 250-50 Diskus) 1 Disk W/Dev Inhaler, 1 PUFF ORAL INH RTBID, (Reported) Last Taken: on 09/24/161999 Levothyroxine Sodium (Levothyroxine Sodium) 75 Mcg Tablet, 1 TAB PO DAILY, (Reported) Last Taken: on 09/24/16 0800 Triamterene/Hydrochlorothiazid (Triamterene- Hctz 37.5-25 mg Tb) 1 Each Tablet, 1 TAB PO DAILY, (Reported) Last Taken: on 09/24/16 0800 Currently on Beta Simone: No Medical/Surgical History Anesthesia PMH: Reports: *Hypertension, Arthritis, Asthma, COPD, Hiatal Hernia , Thyroid Disease, Denies: *Angina, *AZ, Anesthesia Reactions (NO AIRWAY ISSUES) , Blood Transfusion Reac, CHF, CVA/Stroke/TIA, Cancer, Clotting Problems, Glaucoma, Malignant Hyperthermia, Pneumonia, Seizures, Sleep Apnea, Tuberculosis Smoking Status: Never smoker Has pt. smoked today?: No Use Chewing Tobacco?: No Second Hand Exposure: No Substance Use Type: does not use Alcohol Intake: none HX of Last Menstrual Period: PARTIAL HYST. Past Surgical History Orthopedic Surgeries: Yes - STACY TKA Abdominal Surgeries: Yes - APPY Genitourinary Surgeries: Cardiac Surgeries: Endocrine Surgeries: Reproductive Surgeries: Yes - PARTIAL HYST Neurological Surgeries: Ear Surgeries: Nose Surgeries: Throat Surgeries: Yes - COLONOSCOPY Other Surgeries: Anesthesia Adverse Reactions: FOUND none Pertinent Findings EKG Rhythm: Sinus Rhythm, Bundle Branch Block Physical Exam Respiratory: Lungs clear Cardiovascular: FOUND Regular rate, rhythm, FOUND No murmur Airway Assessment Mallampati Score: III TMD: 2 Fingerbreadths Neck Extension: Fair Overall Assessment: May Be Diff Intubation ASA: 3 Plan Anesthesia Plan: TIVA Discussion Discussed risks/options/alternatives of anesthesia and questions answered. Patient consents. Nursing pain assessment noted. Attestation Statement Prior to the delivery of any anesthetic medication, I examined the patient, developed the plan, obtained the patient's consent and discussed the risk and benefits of the procedure with the patient/guardian. MAVIS HALLMAN CRNA Sep 25, 2016 08:44
[2016-09-25 09:06] VITALS: BP 106/53; PULSE 67; RESP 12; TEMP 97.1; O2SAT 97
[2016-09-25 09:21] VITALS: BP 110/56; PULSE 75; RESP 16; O2SAT 94
[2016-09-25 09:36] VITALS: BP 128/59; PULSE 75; RESP 16; O2SAT 95
--- NOTE | 2016-09-25 09:50 | ANESPO ---
Post-Op Note Date 09/25/16 Time: 09:48 Status Pt Participated in Evaluation: Pt participated in person Vital Signs Date Time Temp Pulse Resp B/P Pulse Ox O2 Delivery O2 Flow Rate FiO2 09/25/16 09:36 75 16 128/59 95 Room Air 09/25/16 09:06 97.1 Respiratory Function: Airway patent Cardiovascular Function: Regular pulse Mental Status: Alert/oriented Pain Level Intensity: 0 Hydration: Taking po fluids, IV infusing Complications during Recovery None apparent Follow-Up Instructions Instructions Per Surgeon MAVIS HALLMAN CRNA Sep 25, 2016 09:50
[2016-09-25 09:51] VITALS: BP 137/66; PULSE 70; RESP 16; O2SAT 96
--- NOTE | 2016-09-25 12:27 | OPNOTEF ---
DATE OF PROCEDURE: 09/25/2016 SURGEON: Emanuel Hagen MD PREOPERATIVE DIAGNOSIS Colorectal cancer surveillance. POSTOPERATIVE DIAGNOSIS Colorectal cancer surveillance, normal colonoscopy. PROCEDURE: Colonoscopy. ANESTHESIA: TIVA. BRIEF HISTORY/INDICATIONS Yecenia is a 80-year-old female patient of mine who was seen for a comprehensive exam. We discussed colorectal cancer surveillance and decided to proceed with a colonoscopy. For completeness, please refer to office notes. FINDINGS Upon colonoscopy, there was no evidence for angiodysplastic lesions, polyps, diverticula or adria malignancies. DESCRIPTION OF PROCEDURE After informed consent was obtained, the patient was brought to the endoscopy suite and placed on the table in left lateral decubitus position. The patient subsequently underwent total intravenous anesthesia by the nurse hand tire trimmer per my request. Next, a digital rectal examination was performed. Normal sphincter tone. No rectal masses were appreciated. An Olympus colonoscope was inserted in the anus and advanced with the lumen of the colon under direct visualization at all times until the cecum was ascertained. Triangulation of the tenia coli, ileocecal valve and appendiceal lumen were all visualized. The scope was then slowly withdrawn, again while maintaining visualization of the lumen at all times. As stated above, the entire colon was without evidence for angiodysplastic lesions, polyps, diverticula or adria malignancies. The scope continued to be withdrawn until it was brought forth back into the rectal vault. A J-maneuver was then performed. No worrisome perianal pathology was noted. The scope was allowed to straighten and was withdrawn through the anal verge. The patient tolerated the procedure without difficulty and was sent back to the preop area in stable condition. Secondary to the absence of findings upon this colonoscopy, the patient would not need to undergo a repeat colonoscopy until five years from now due to her family history. That would put her at 85 years old. We will discuss the risk and benefit at that time. ASHLEY
== END 2016-09-25 10:01 | disposition home or self-care (01) ==
LOC: NSC 06:40
PROVIDERS: ATTEND Family Medicine
DX: Z12.11 Encounter for screening for malignant neoplasm of colon (principal); Z80.0 Family history of malignant neoplasm of digestive organs
CPT/HCPCS: G0105; J7120